=== PATIENT | male | born 1965 | race Caucasian/White ===

== ENCOUNTER 2017-02-19 15:16 | Emergency (ER) | payer SELFPAY ==
[2017-02-19] MEDS ORDERED: Aspirin Low Dose CHEW TAB* 81 MG PO ONE ×2 (15:22→15:42)
[2017-02-19] MEDS ORDERED: Famotidine IV* 10 MG/ML 2 ML (20 mg) IV SLOW PU ONE (15:25)
[2017-02-19] MEDS ORDERED: Al Hydrox/Mg Hydrox/Simet LIQ* 30 ML UDC PO ONE (15:28)
[2017-02-19] MEDS ORDERED: Aspirin Low Dose CHEW TAB* 81 MG ONE (15:29)
--- NOTE | 2017-02-19 15:36 | UC ---
Cardiac HPI - HPI Summary HPI Summary: 51 yo male with long hx epigastric pain/dyspepsia with (-) gi work ups past week of so severe epigastric pain today the pain was so severe he had a syncopal episode has a lot of chest pressure he has been burping a lot no n/v no SOB - History of Current Complaint Stated Complaint: CHEST PAIN Time Seen by Provider: 02/19/17 15:19 Hx Obtained From: Patient Onset/Duration: Sudden Onset, Lasting Hours - 1 Timing: Constant Initial Severity: Moderate Current Severity: Moderate Pain Intensity: 5 Chest Pain Location: Diffuse - sub sternal Character: Burning, Pressure/Squeezing Aggravating: Nothing Alleviating: Nothing Associated Signs & Symptoms: Positive: Chest Pain - Allergy/Home Medications Allergies/Adverse Reactions: Allergies Allergy/AdvReac Type Severity Reaction Status Date / Time No Known Allergies Allergy Verified 05/10/16 11:17 PMH/Surg Hx/FS Hx/Imm Hx Previously Healthy: Yes - Surgical History Surgical History: Yes Surgery Procedure, Year, and Place: childhood surgeries - meniscus repair, lymph node biopsy on neck - benign, deviated septum repair - Family History Known Family History: Negative: Cardiac Disease, Hypertension, Diabetes, Other - prostate CA - Social History Alcohol Use: Occasionally Alcohol Amount: 2 beers a week Substance Use Type: None Smoking Status (MU): Never Smoked Tobacco Review of Systems Constitutional: Negative Skin: Negative Eyes: Negative ENT: Negative Respiratory: Negative Cardiovascular: Chest Pain Gastrointestinal: Negative Genitourinary: Negative Motor: Negative Neurovascular: Negative Musculoskeletal: Negative Neurological: Negative Psychological: Negative Is Patient Immunocompromised?: No All Other Systems Reviewed And Are Negative: Yes Physical Exam Triage Information Reviewed: Yes Appearance: Well-Appearing, Well-Nourished, Pain Distress Vital Signs: bp 122/77, 106, 20, O2 sat 100% Eye Exam: Normal ENT: Positive: Hearing grossly normal. Negative: Nasal congestion, Nasal drainage, Trismus, Muffled/hoarse voice Neck: Positive: Supple, Nontender Respiratory: Positive: Lungs clear, Normal breath sounds, No respiratory distress, No accessory muscle use Cardiovascular: Positive: RRR, No Murmur, Tachycardia Abdomen Description: Positive: Nontender, No Organomegaly, Soft, Distended Musculoskeletal: Positive: ROM Intact, No Edema Neurological: Positive: Alert Psychological Exam: Normal Skin Exam: Normal Diagnostics - EKG Cardiac Rhythm: Sinus: Normal, AFib: Normal, Junctional: Normal, LBBB: Normal, Other Rhythm: Normal Ectopy: None ST Segment: Normal - Assessment/Plan Course Of Treatment: D/W [place]. TO [facility] via EMS - Clinical Impression Provider Diagnoses: Chest pain -suspect gi etiology. Syncopal episode Discharge - Discharge Plan Condition: Stable Disposition: TRANS HIGHER LVL OF CARE FAC
[2017-02-19 15:42] VITALS: BP 122/77
== END 2017-02-19 15:45 | disposition short-term general hospital (02) ==
LOC: UCEAST 15:16
DX: R07.9 Chest pain, unspecified (principal); R55 Syncope and collapse
CPT/HCPCS: 93005; 99203; A9270-GY; G0463

== ENCOUNTER 2017-02-19 16:11 | Observation (INO) | payer SELFPAY ==
[2017-02-19] MEDS ORDERED: Aspirin Low Dose CHEW TAB* 81 MG PO ONE (17:18)
[2017-02-19 18:12] LABS: Hematocrit 40 % (42-52); Hemoglobin 13.7 g/dl (14.0-18.0); Mean Corpuscular HGB Conc 34 g/dl (31-36); Mean Corpuscular Hemoglobin 34 pg (27-31); Mean Corpuscular Volume 99 fL (80-94); Mean Platelet Volume 7 um3 (7.4-10.4); Red Blood Count 4.05 10^6/ul (4.0-5.4); Red Cell Distribution Width 13 % (10.5-15); White Blood Count 5.6 10^3/ul (3.5-10.8)
[2017-02-19 18:34] LABS: Albumin 4.3 g/dL (3.2-5.2); BUN/Creatinine Ratio 8.9 (8-20); Calcium 9.5 mg/dL (8.6-10.3); EGFR African American 88.5 (>60); EGFR Non-African American 68.8 (>60); Globulin 3.1 g/dL (2-4); Potassium 3.3 mmol/L (3.5-5.0); Total Bilirubin 0.4 mg/dL (0.2-1.0); Total Protein 7.4 g/dL (6.4-8.9)
--- NOTE | 2017-02-19 18:36 | RAD ---
INDICATION: Syncope COMPARISON: None TECHNIQUE: Noncontrast axial source images were acquired from the skull base to the vertex. FINDINGS: Ventricles/sulci: The ventricles and cisterns are normal in size and configuration for age. Brain parenchyma: There is no focal parenchymal finding, evidence of intracranial mass, or intracranial mass effect. Intracranial hemorrhage:None. Extra-axial spaces: There are no abnormal extra axial fluid collections or evidence of extra-axial mass. Calvarium: There is no calvarial fracture or other calvarial abnormality. Scalp: There is no evidence of scalp or extracalvarial soft tissue abnormality. Paranasal sinuses/mastoid: The paranasal sinuses and mastoid air cells are clear. Other: None. IMPRESSION: NEGATIVE EXAMINATION
--- NOTE | 2017-02-19 18:42 | RAD ---
INDICATION: Chest pain COMPARISON: None TECHNIQUE: An AP seated portable view obtained at 1827 hours is submitted. FINDINGS: Bones/Soft Tissues: There are no acute bony findings. Cardiomediastinal: The cardiomediastinal silhouette is normal. Lungs: There are no infiltrates. Pleura: There are no pleural effusions. Other: None IMPRESSION: NO ACTIVE DISEASE.
[2017-02-19] MEDS ORDERED: Lidocaine 2% VISCOUS* 15 ML UDC PO ONE (19:53)
[2017-02-19] MEDS ORDERED: Al Hydrox/Mg Hydrox/Simet LIQ* 30 ML UDC PO ONE (19:53)
[2017-02-19] MEDS ORDERED: Acetaminophen TAB* 325 MG PO PRN (19:56)
[2017-02-19] MEDS ORDERED: Ondansetron INJ* 2 MG/ML VIAL IV PRN (19:56)
[2017-02-19] MEDS ORDERED: Omeprazole CAP* 20 MG PO ONE (19:56)
[2017-02-19] MEDS ORDERED: SIMETHICONE 40 MG/0.6 ML PO PRN (19:56)
[2017-02-19] MEDS ORDERED: Potassium Chlor TAB* 20 MEQ TAB.ER PO ONE (20:06)
[2017-02-19] MEDS ORDERED: diPHENhydraMINE PO* 50 MG PO PRN (20:38)
[2017-02-19] MEDS: Heparin VIAL(*) 5000 UNITS/ML VIAL (FIVE THOUSAND) SUBCUT SCH (22:44)
--- NOTE | 2017-02-20 01:02 | HP ---
HISTORY AND PHYSICAL: DATE OF ADMISSION: 02/19/17 PRIMARY CARE PROVIDER: None. ATTENDING PHYSICIAN WHILE IN THE HOSPITAL: Dr. Sathya Akers * (report dictated by Junior Rothman NP). CHIEF COMPLAINT: 1. Chest discomfort. 2. Presyncope. HISTORY OF PRESENT ILLNESS: Mr. Sin is a 51-year-old male patient who really does not have much past medical history, has a history of migraines only and comes into the ER today stating that he was standing up, washing dishes and suddenly he developed an episode of having chest discomfort. He states that he felt a pressure in his chest, he got very lightheaded, he felt like he was going to faint. He was able to lower himself to the ground in front of the sink. He was in the position. He started belching and as he was belching , he was feeling better. He states he did not pass out. Denied any shortness of breath. He does state that he felt sweaty right before he started burping and he felt nauseated. He says he does have an issue with episodes like this in the past. He does state that he has issues with belching. His son was concerned because where he almost fainted and he was also concerned because of the complaints of chest pressure, so his son brought him into [facility] and they sent him to the hospital to be evaluated. He says that intermittently since he has been here he has been having some chest discomfort but it is relieved after he burps. He describes it as a pressure in the center of his chest, no associated shortness of breath. He has had no recent calf pain or tenderness. No fevers or chills. There has been no vomiting or diarrhea and no stomach pain. He was evaluated in the ED. There was a concern because of the near syncopal event and the fact that he did have some chest discomfort, we were asked to evaluate for admission. PAST MEDICAL HISTORY: Significant for migraines. PAST SURGICAL HISTORY: 1. He has had a hernia repair. 2. Right knee arthroscopy. 3. Deviated septum repair. MEDICATIONS: He does take multivitamin 1 tablet daily. ALLERGIES TO MEDICATIONS: Include no known drug allergies. FAMILY HISTORY: Mother had a history of colon cancer. Father had a history of prostate cancer. SOCIAL HISTORY: He does not smoke. He occasionally drinks alcohol. Surrogate decision maker is his . REVIEW OF SYSTEMS: There is no documented fever. He denied having any significant weight change. There was no double vision. No ear discharge. There was no rhinorrhea. No sore throat. No thyroid enlargement. Denies having any chest pain now but he does have some per my HPI. There was no shortness of breath. No orthopnea. No nocturnal dyspnea. There was no abdominal pain. No nausea. No vomiting. No dysuria. No frequency. There is presyncope, but no loss of consciousness. No pruritus and no skin ulcerations. Review of 14 systems completed, all others negative. PHYSICAL EXAMINATION GENERAL: At this time, Mr. Sin is a 51-year-old male patient who appears to be well-nourished, well-developed. He does not appear to be in any acute distress. VITAL SIGNS: Blood pressure 126/86, pulse of 104, respirations 17, O2 sat 97%, temperature 98.0. His heart rate now is known to be 95. HEENT: Head is atraumatic and normocephalic. Eyes: EOMs are intact. Sclerae were anicteric and not pale. Throat: Oral mucosa appears to be moist. No oropharyngeal erythema. NECK: Supple. LUNGS: Clear to auscultation bilaterally. No wheezes, rales, or rhonchi. HEART: Sounds S1, S2. Regular rate and rhythm. No murmurs, rubs, or gallops. ABDOMEN: Soft, flat, nontender. Bowel sounds present. EXTREMITIES: Pulses were 2+ throughout. No peripheral edema. He had 5/5 strength. No calf tenderness. NEUROLOGICAL: He is awake, alert, and oriented x3. No gross focal deficits. SKIN: Intact. LABORATORY DATA/DIAGNOSTIC STUDIES: Today revealed WBC of 5.6, RBC of 4.05, hemoglobin of 13.7, hematocrit of 40, platelet count of 257. Sodium 140, potassium 3.3, chloride 105, bicarb 29, BUN 10, creatinine 1.12, glucose 89, lactic 1.5, calcium 9.5, total bili 0.4. AST 21, ALT 15, alk phos 81. Troponin 0. Albumin of 4.3. He had a brain CT obtained today, which revealed negative exam. He had a chest x-ray obtained today, which revealed no acute disease. He had an EKG obtained today, which revealed a normal sinus rhythm, rate of [address] elevation or T-wave inversions. This was reviewed to the previous EKG, it appears to be similar. Old medical records were reviewed. ASSESSMENT AND PLAN: Mr. Sin is a 51-year-old male patient coming into the ER today with complaints of having episodes of presyncope and chest discomfort that is alleviated with belching. He will be admitted under observation status for: 1. Chest pain. I suspect this is probably gastrointestinal related. I am going to give him a GI cocktail, put him on simethicone as needed, but the episode of presyncope and chest pressure makes me concerned. I do think he deserves to have his trops cycled, check a stress test, echo and in addition of this, also get an EKG and serial troponins as well, and continue to monitor him. 2. Presyncope. Again, he may have vasovagal with him trying to burp and belch to feel better, but I will get orthostatics, echo, tele, and cycle trops and we will follow. 3. History of migraines. P.r.n. Tylenol is ordered. 4. DVT prophylaxis. He is moderate risk and he will be placed on heparin subcu. 5. Code status. He is full code. 6. Fluids, electrolytes, nutrition. Heart-healthy diet TIME SPENT: Time spent on the admission was 60 minutes, greater than half the time spent [id number] with the patient obtaining my history and physical, the other half the time was spent going over the plan of care with the patient and implementing plan of care. I did discuss the plan of care with my attending physician, Dr. Akers, he is in agreement. JUNIOR ROTHMAN, ABIODUN [id number]/[facility] #: [id number] [place]
[2017-02-20] MEDS ORDERED: Omeprazole CAP* 20 MG PO SCH (06:00)
[2017-02-20] MEDS: Heparin VIAL(*) 5000 UNITS/ML VIAL (FIVE THOUSAND) SUBCUT SCH ×2 (06:06→15:00)
[2017-02-20 06:24] LABS: Hematocrit 41 % (42-52); Hemoglobin 14.4 g/dl (14.0-18.0); Mean Corpuscular HGB Conc 35 g/dl (31-36); Mean Corpuscular Hemoglobin 34 pg (27-31); Mean Corpuscular Volume 98 fL (80-94); Mean Platelet Volume 8 um3 (7.4-10.4); Red Blood Count 4.21 10^6/ul (4.0-5.4); Red Cell Distribution Width 14 % (10.5-15)
[2017-02-20 06:42] LABS: Calcium 9.1 mg/dL (8.6-10.3); EGFR African American 100.9 (>60); EGFR Non-African American 78.5 (>60); HDL Cholesterol 45.1 mg/dL; Potassium 3.8 mmol/L (3.5-5.0)
[2017-02-20] MEDS ORDERED: Aspirin Low Dose CHEW TAB* 81 MG PO SCH (09:00)
[2017-02-20] MEDS ORDERED: Multivitamins/Minerals TAB PO SCH (09:00)
--- NOTE | 2017-02-20 14:02 | RAD ---
Edited for charges. INDICATION: Chest pain. COMPARISON: No relevant prior exams available on the [facility] PACS for comparison. TECHNIQUE: 10.680 mCi of Tc-99m Myoview were administered IV. SPECT images of the heart were obtained. Later on the same day. Under the direction of Dr. Sheppard, an exercise stress test was performed. The patient achieved a peak heart rate of 194 bpm, 115 % of the age- predicted maximum. Subsequently, the patient was given an IV injection of 25.250 mCi Tc- 99m Myoview. SPECT images of the heart were obtained and a gated wall motion study was performed. FINDINGS: Gated wall motion images were obtained at stress and demonstrate hypokinesia at the septum and anterior wall. The calculated left ventricular ejection fraction is 52 % at stress. Estimated LEFT ventricular end diastolic volume is 59 mL. TID 0.8. Based on review of the attenuation corrected and non corrected images the distribution of radiopharmaceutical within the myocardium on the stress and rest images is within normal limits. No fixed or reversible regions of hypoperfusion evident. IMPRESSION: 1. Hypokinesia at the septum and anterior wall. LEFT ventricular ejection fraction remains within normal limits. 2. No evidence for stress-induced ischemia or presence of an infarct. ASSESSMENT: LOW RISK. Based on imaging criteria from ACC/AHA 2002 Guideline Update for the Management of Patients With Chronic Stable Angina Table 23. Noninvasive Risk Stratification. MTDD
--- NOTE | 2017-02-20 15:29 | DCNOTE ---
Patient seen prior to and after his stress test. Abdominal/chest pain has resolved, no recurrence. Says he has been dealing with these GI issues for years , has had endoscopy back in [place] that was normal and has been a number of medications. Also has had tachycardia worked up in the past as well with a Project Consultant in [place]. He is resistant to trying any new GI medications at this time as he feels he has been on so many in the past, would prefer to stick with Simethicone. He also says that he has had a number of recent stressors in his life, particularly over the last days-weeks. On exam, mild tachycardia, lungs CTA B/L, no w/r/r, abd soft, NTND, BS+, no LE edema No ischemic changes on stress test although HR elevated. TSH WNL. Will discharge with new PCP appointment. Would benefit from outpatient GI referral as well as possible Cardiology/EP referral if HR remains elevated on PCP evaluation.
[2017-02-20 15:41] VITALS: BP 114/80
--- NOTE | 2017-02-21 08:18 | ED ---
Mohinder Villatoro Thomas, scribed for Tim Wilkes MD on 02/19/17 at 1915 . Syncope/Near Syncope - HPI Summary HPI Summary: The pt is a 51 y/o M presenting to the ED c/o a near-syncopal episode that occurred today when was washing the dishes. He also reports a syncopal episode with LOC a few days ago when he was preparing breakfast. He denies head trauma from these episodes. He also complains of intermittent substernal CP that will resolve when he burps. His chest pain did not radiate. Two days ago, he felt numbness in his hands. He reports that these symptoms have been experienced in the past, and he has had workup with [place] including scans to evaluate them. He denies any back pain, SOB, and N/V/D. He does not take any medications. The patients son says that he is under a lot of stress. PMHx: migraine headaches, GERD, anxiety. SHx: no smoking, occasional drinking, no illicit drug use. FHx: [place]. He is accompanied by his two sons. He does not currently have health insurance. He has not seen a PCP in two years. - History Of Current Complaint Chief Complaint: EDChestWallPain Time Seen by Provider: 02/19/17 17:17 Hx Obtained From: Patient Onset/Duration: Lasting Hours - onset today, Still Present Timing: Constant Context: Unwitnessed Activity At Onset: Other - Doing dishes Associated Head Trauma: No Aggravating Factor(s): Nothing Alleviating Factor(s): Other - burping alleviates his CP Associated Signs And Symptoms: Chest Pain, Numbness - numbness in his hands, Other - NEG: back pain, SOB, N/V/D Related History: Similar Episode/Dx as - Similar symptoms in the past - Allergies/Home Medications Allergies/Adverse Reactions: Allergies Allergy/AdvReac Type Severity Reaction Status Date / Time No Known Allergies Allergy Verified 02/19/17 15:38 PMH/Surg Hx/FS Hx/Imm Hx Previously Healthy: No Respiratory History: Reports: Other Respiratory Problems/Disorders - nose bleeds , very small r/t weather GI History: Reports: Hx Gastroesophageal Reflux Disease History: Reports: Hx Kidney Stones Sensory History: Reports: Hx Contacts or Glasses Denies: Hx Hearing Aid Opthamlomology History: Reports: Hx Contacts or Glasses Neurological History: Reports: Hx Migraine Psychiatric History: Reports: Hx Anxiety - Surgical History Surgery Procedure, Year, and Place: childhood surgeries - meniscus repair, lymph node biopsy on neck - benign, deviated septum repair Hx Anesthesia Reactions: No Infectious Disease History: Reports: Hx Hepatitis - as a child 1969' Denies: Traveled Outside the [place] in Last 30 Days - Family History Known Family History: Positive: Other - POS: [place] Negative: Cardiac Disease, Hypertension, Diabetes - Social History Alcohol Use: Occasionally Alcohol Amount: 2 beers a week Substance Use Type: Reports: None Smoking Status (MU): Never Smoked Tobacco Review of Systems Negative: Fever, Chills Negative: Erythema - eyes Negative: Sore Throat Positive: Chest Pain - intermittent substernal Negative: Shortness Of Breath, Cough Negative: Abdominal Pain, Vomiting, Diarrhea, Nausea Negative: dysuria, hematuria Negative: Myalgia, Edema - legs, Other - NEG: back pain Neurological: Other - NEG: dizziness Positive: Numbness - numbness in his hands, Syncope - syncope and near-syncope All Other Systems Reviewed And Are Negative: Yes Physical Exam - Summary Physical Exam Summary: Constitutional: Well-developed, Well-nourished, Alert. (-) Distressed Skin: Warm, Dry HENT: Normocephalic; Atraumatic Eyes: Conjunctiva normal Neck: Musculoskeletal ROM normal neck. (-) JVD, (-) Stridor, (-) Tracheal deviation Cardio: Rhythm regular, rate normal, Heart sounds normal; Intact distal pulses; The pedal pulses are 2+ and symmetric. Radial pulses are 2+ and symmetric. (-) Murmur Pulmonary/Chest wall: Effort normal. (-) Respiratory distress, (-) Wheezes, (-) Rales Abd: Soft, (-) Tenderness, (-) Distension, (-) Guarding, (-) Rebound Musculoskeletal: (-) Edema Lymph: (-) Cervical adenopathy Neuro: Alert, Oriented x3 Psych: Mood and affect Normal Triage Information Reviewed: Yes Vital Signs On Initial Exam: Initial Vitals BP 116/78 02/19/17 16:25 Vital Signs Reviewed: Yes - Elizabeth Coma Scale Coma Scale Total: 15 Diagnostics - Vital Signs Vital Signs Temp Pulse Resp BP Pulse Ox 02/19/17 16:30 104 17 126/86 97 02/19/17 16:28 99 19 96 02/19/17 16:26 98.0 F 106 16 126/86 22 02/19/17 16:25 116/78 - Laboratory Lab Results: Lab Results 02/19/17 02/19/17 02/19/17 Range/Units 18:00 18:00 18:00 WBC 5.6 (3.5-10.8) 10^3/ul RBC 4.05 (4.0-5.4) 10^6/ul Hgb 13.7 L (14.0-18.0) g/dl Hct 40 L (42-52) % MCV 99 H (80-94) fL MCH 34 H (27-31) pg MCHC 34 (31-36) g/dl RDW 13 (10.5-15) % Plt Count 257 (150-450) 10^3/ul MPV 7 L (7.4-10.4) um3 Neut % (Auto) 59.5 (38-83) % Lymph % (Auto) 33.1 (25-47) % [place] % (Auto) 6.3 (1-9) % Eos % (Auto) 0.2 (0-6) % Baso % (Auto) 0.9 (0-2) % Absolute Neuts (auto) 3.4 (1.5-7.7) 10^3/ul Absolute Lymphs (auto) 1.9 (1.0-4.8) 10^3/ul Absolute Monos (auto) 0.4 (0-0.8) 10^3/ul Absolute Eos (auto) 0 (0-0.6) 10^3/ul Absolute Basos (auto) 0 (0-0.2) 10^3/ul Absolute Nucleated RBC 0 10^3/ul Nucleated RBC % 0 Sodium 140 (133-145) mmol/L Potassium 3.3 L (3.5-5.0) mmol/L Chloride 105 (101-111) mmol/L Carbon Dioxide 29 (22-32) mmol/L Anion Gap 6 (2-11) mmol/L BUN 10 (6-24) mg/dL Creatinine 1.12 (0.67-1.17) mg/dL Est GFR ( Amer) 88.5 (>60) Est GFR (Non-Af Amer) 68.8 (>60) BUN/Creatinine Ratio 8.9 (8-20) Glucose 89 (70-100) mg/dL Lactic Acid 1.5 (0.5-2.0) mmol/L Calcium 9.5 (8.6-10.3) mg/dL Total Bilirubin 0.40 (0.2-1.0) mg/dL AST 21 (13-39) U/L ALT 15 (7-52) U/L Alkaline Phosphatase 81 (34-104) U/L Troponin I 0.00 (<0.04) ng/mL Total Protein 7.4 (6.4-8.9) g/dL Albumin 4.3 (3.2-5.2) g/dL Globulin 3.1 (2-4) g/dL Albumin/Globulin Ratio 1.4 (1-3) Result Diagrams: 02/20/17 06:08 02/20/17 06:08 Lab Statement: Any lab studies that have been ordered have been reviewed, and results considered in the medical decision making process. - Radiology XR Xray Interpretation: No Acute Changes - No active disease. ED physician has read this report and agrees. Radiology Interpretation Completed By: Radiologist - CT CT Brain CT Interpretation: No Acute Changes - Negative exam. ED physician has read this report and agrees. CT Interpretation Completed By: Radiologist - EKG 16:49 Cardiac Rate: NL - 99 BPM EKG Interpretation: Sinus rhythm. No STEMI or ectopy. Course/Dx Assessment/Plan: The pt is a 51 y/o M presenting to the ED c/o a near-syncopal episode that occurred today when was washing the dishes. He also reports a syncopal episode with LOC a few days ago when he was preparing breakfast. He denies head trauma from these episodes. He also complains of intermittent substernal CP that will resolve when he burps. His chest pain did not radiate. Two days ago, he felt numbness in his hands. He reports that these symptoms have been experienced in the past, and he has had workup with [place] including scans to evaluate them. He denies any back pain, SOB, and N/V/D. He does not take any medications. The patients son says that he is under a lot of stress. PMHx: migraine headaches, GERD, anxiety. SHx: no smoking, occasional drinking, no illicit drug use. FHx: [place]. He is accompanied by his two sons. He does not currently have health insurance. He has not seen a PCP in two years. In the ED the patient was given ASA. Bloodwork was obtained. CT Brain shows a negative exam. CXR shows no active disease. EKG shows sinus rhythm with on STEMI. I consulted with Dr. Lopez, hospitalist, who admits the patient to [facility] at 19:29. Patient is agreeable to this plan. - Diagnoses Provider Diagnoses: Chest pain, unspecified, Syncope - Physician Notifications Discussed Care of Patient With: Augie Lopez Time Discussed With Above Provider: 19:29 Instructed by Provider To: Other - I consulted regarding patient care. He admits the patient to [facility]. Discharge - Discharge Plan Condition: Good Disposition: ADMITTED TO [facility] documentation as recorded by the Mohinder bell Thomas accurately reflects the service I personally performed and the decisions made by me, Tim Wilkes MD.
--- NOTE | 2017-02-21 09:09 | DS ---
CC: Dr. Edwards * DISCHARGE SUMMARY: DATE OF ADMISSION: 02/19/17 DATE OF DISCHARGE: 02/20/17 PRIMARY CARE PHYSICIAN: Dr. Edwards. PRINCIPAL DISCHARGE DIAGNOSIS: Chest pain, likely gastrointestinal related secondary to gas, sinus tachycardia. SECONDARY DIAGNOSIS: History of migraines. DISCHARGE MEDICATION REGIMEN: 1. Simethicone 40 mg by mouth 2 times daily as needed for gas pains. 2. Multiple vitamin 1 tablet by mouth daily. STUDIES DONE DURING HOSPITALIZATION: 1. Chest x-ray, impression: No active disease. 2. CT of the brain, impression: Negative examination. 3. Nuclear cardiac stress test, impression: Hypokinesia of the septum and anterior wall, left ventricular ejection fraction remains within normal limits. No evidence for stress-induced ischemia or presence of an infarct. ASSESSMENT: Low risk. HISTORY OF PRESENT ILLNESS AND HOSPITAL SUMMARY: Please see the full history and physical by Junior Cassidy NP, for full details. Briefly, Mr. Sin is a 51-year- old man with past medical history of longstanding GI issues, who presented to the hospital with chest discomfort that came on suddenly and caused significant pain and it felt like he was going to faint. As per his family, he may have had an episode of syncope in the days prior with similar pain. The patient began to belch and as he was belching, the pain improved. He was brought into the hospital due to concern for possible cardiac etiology. His troponins were trended and remained negative. The patient underwent a nuclear cardiac stress test as above, did not show any areas of ischemia; however, I was contacted by Dr. Sheppard as the patient seemed to have resting heart rate around 90 prior to the test and became significantly tachycardic during the test. The patient states he had this worked up in the past in [place] and nothing abnormal was found. The patient also states that he has had his GI symptoms worked up in [place] with an endoscopy and also no clear etiology was found. The patient did not start any additional GI medications as he states he has been on a number of them in the past and none of them seemed to help. He preferred to stay on his simethicone alone. He was set up with a new PCP here in the area, Dr. Edwards, and after seeing him, consideration can be made for possible GI consultation as an outpatient and Dr. Sheppard also recommended consideration of an EP consult as the patient remains persistently tachycardic. Here in the hospital, TSH was checked, which was normal. TIME SPENT: Total time spent on this discharge 40 minutes. This is the summary of the hospitalization. Please see the full medical record for further details. [id number]/[facility] #: [id number] MTDD
== END 2017-02-20 17:53 | disposition home or self-care (01) ==
LOC: ED 16:11 → MEDTELE 19:54
PROVIDERS: ADMIT Hospitalist; ATTEND Hospitalist
DX: R07.9 Chest pain, unspecified (principal); R00.0 Tachycardia, unspecified; R55 Syncope and collapse; Z79.899 Other long term (current) drug therapy
CPT/HCPCS: 36415; 70450; 71010; 78452; 80048; 80053; 80061; 83036; 83605; 84443; 84484; 85025; 93005; 93017; 99284; A9270-GY; A9502; G0378; J1644